=== PATIENT | female | born 1955 | race Caucasian/White ===

== ENCOUNTER 2016-10-21 18:46 | Emergency (ER) | payer SELFPAY ==
[2016-10-21 19:01] VITALS: RESP 14; O2SAT 95
--- NOTE | 2016-10-21 19:48 | EDPHY ---
H & P Time Seen by Provider: 10/21/16 18:56 HPI/ROS: 61-year-old female presents complaining of right lateral foot pain, she states she rolled it off the edge of the sidewalk. No numbness or tingling. Review of systems As per HPI General no fever no chills no weakness HEENT no eye pain no eye discharge. No eye redness, no sore throat Respiratory no cough, no shortness of breath Cardiac no chest pain, no peripheral edema GI no abdominal pain, no diarrhea, no constipation, no nausea, no vomiting no flank pain, no hematuria, no dysuria Musculoskeletal no myalgias, positive joint pain Heme no easy bruising, no easy bleeding Endo no polyuria, no polydipsia Skin no rashes, no pruritus Neuro no syncope, no dizziness, no headaches Psych is no suicidal ideation, no homicidal ideation Past Medical/Surgical History: Noncontributory Social History: Denies alcohol or drug use Smoking Status: Former smoker Physical Exam: 61-year-old female Alert and oriented in no acute distress nontoxic appearance, afebrile Atraumatic normocephalic Neck no JVD Lungs clear to auscultation, no respiratory distress Heart regular rate and rhythm Extremities no cyanosis clubbing edema Constitutional: Initial Vital Signs Temperature (C) 37.5 C 10/21/16 18:58 Heart Rate 96 10/21/16 18:58 Respiratory Rate 14 10/21/16 18:58 Blood Pressure 132/83 H 10/21/16 18:58 O2 Sat (%) 95 10/21/16 18:58 O2 Delivery Mode Room Air Allergies/Adverse Reactions: No Known Allergies Allergy (Unverified 10/21/16 18:57) Home Medications: Medication Instructions Recorded NK [No Known Home Meds] 10/21/16 Medical Decision Making ED Course/Re-evaluation: Patient seen and evaluated for right lateral foot pain, rolled her foot off the edge of a sidewalk. Differential diagnosis considered Right foot sprain, foot fracture Right foot x-ray Preliminary read negative for fracture Final reading pending Impression Right foot sprain Plan CAM boot Rest ice elevation Follow-up PCP Departure - Departure Disposition: Home, Routine, Self-Care Clinical Impression: Right foot sprain Condition: Good Instructions: Foot Sprain (ED) Referrals: Maria Del Carmen Burroughs MD [Primary Care Provider] - As per Instructions
[2016-10-21 20:23] VITALS: BP 128/82; PULSE 88; TEMP 99
== END 2016-10-21 20:10 | disposition home or self-care (01) ==
LOC: CED 18:46
DX: S93.601A Unspecified sprain of right foot, initial encounter (principal); Z87.891 Personal history of nicotine dependence; X58.XXXA Exposure to other specified factors, initial encounter; Y92.480 Sidewalk as the place of occurrence of the external cause
CPT/HCPCS: 73630-PO; L4386

== ENCOUNTER 2017-05-17 11:31 | Emergency (ER) | payer SELFPAY ==
[2017-05-17 11:41] VITALS: TEMP 98.5
[2017-05-17] MEDS ORDERED: IBUPROFEN 600 MG TAB PO ONE (11:50)
--- NOTE | 2017-05-17 12:10 | EDPHY ---
H & P Stated Complaint: fell 2 days ago, low back pain - Personal History Current Tetanus Diphtheria and Acellular Pertussis (TDAP): Unsure Tetanus Vaccine Date: unsure - Medical/Surgical History Hx Asthma: No Hx Chronic Respiratory Disease: No Hx Diabetes: No Hx Cardiac Disease: No Hx Renal Disease: No Hx Cirrhosis: No Hx Alcoholism: No Hx HIV/AIDS: No Hx Splenectomy or Spleen Trauma: No Other PMH: hepatitis C resolved 5 years ago, multiple sclerosis, - Social History Smoking Status: Former smoker <Chino Calle - Last Filed: 05/17/17 12:30> Source: Patient Exam Limitations: No limitations - Family History Significant Family History: No pertinent family hx <Naun Harvey - Last Filed: 05/20/17 14:48> Time Seen by Provider: 05/17/17 12:03 Constitutional: Initial Vital Signs Temperature (C) 36.9 C 05/17/17 11:36 Heart Rate 67 05/17/17 11:36 Respiratory Rate 16 05/17/17 11:36 Blood Pressure 157/74 H 05/17/17 11:36 O2 Sat (%) 98 05/17/17 11:36 O2 Delivery Mode Room Air Allergies/Adverse Reactions: No Known Allergies Allergy (Unverified 05/17/17 11:41) Home Medications: Medication Instructions Recorded Ibuprofen [Motrin] 800 mg PO Q8 #20 tab 05/17/17 oxyCODONE IR [Oxycodone Ir (*)] 5 - 10 mg PO Q6 PRN #20 tab 05/17/17 Lidocaine [Lidoderm] 1 each TP DAILY #15 adh..patch 05/19/17 Methocarbamol [Robaxin 750 mg (*)] 750 - 1,500 mg PO QID PRN #30 tab 05/19/17 oxyCODONE/APAP 5/325 [Percocet 1 - 2 tab PO Q4-6PRN PRN #20 tab 05/19/17 5/325 (*)] Medical Decision Making <Chino Calle - Last Filed: 05/17/17 12:30> <Naun Harvey - Last Filed: 05/20/17 14:48> ED Course/Re-evaluation: CHIEF COMPLAINT: Right rib pain HISTORY OF PRESENT ILLNESS: Healthy 61-year-old who slipped in her garage 2 days ago. She is undergoing a construction project and missed a step a temporary ramp. She fell backwards and hit some items in her garage. She hit her head but did not even really noticed that the next day. She did not have loss of consciousness, no amnesia, no nausea vomiting, no neck pain. She also has some bruising on the back of her right thigh but she came here today because she has right posterior lower thoracic rib pain. She states she had that pain initially but then today when she twisted her turned she felt excruciating pain. She denies any other injuries. REVIEW OF SYSTEMS: A 10 point review of systems was performed and is negative with the exception of the elements mentioned in the history of present illness. PHYSICAL EXAM: HR, BP, O2 Sat, RR. Temp noted General Appearance: Alert, well hydrated, appropriate, and non-toxic appearing. Head: Atraumatic without scalp tenderness or obvious injury Eyes: Pupils equal, round, reactive to light and accommodation, EOMI, no trauma , no injection. Ears: Clear bilaterally, no perforation, normal landmarks Nose: Atraumatic, no rhinorrhea, clear. Throat: There is no erythema or exudates, no lesions, normal tonsils, mucus membranes moist. Neck: Supple, 2+ carotid upstroke, nontender, no lymphadenopathy. Respiratory: Shallow breaths due to pain. Pain to palpation over the right posterior lateral 10th through 12th ribs. Spinal palpations normal. No retractions, no distress, no wheezes, and no accessory muscle use. Lungs are clear to auscultation bilaterally. Cardiovascular: Regular rate and rhythm, no murmurs, rubs, or gallops. Bilateral carotid, radial, dorsalis pedis, and posterior tibial pulses intact. Good capillary refill all extremities. Gastrointestinal: Abdomen is soft, nontender, non-distended, no masses, no rebound, no guarding, no peritoneal signs. Musculoskeletal: Normal active ROM of all extremities, atraumatic. Neurological: Alert, appropriate, and interactive. The patient has normal DTRs and non-focal cranial nerves, motor, sensory, and cerebellar exam. Skin: No rashes, good turgor, no nodules on palpation. Past medical history: Hepatitis-C Past surgical history: Noncontributory Family history: Noncontributory Social history: Single, employed, does not abuse tobacco drugs or alcohol DIAGNOSTICS/PROCEDURES/CRITICAL CARE TIME: Study: PA chest with right rib series Indication: Trauma Results: After viewing the images myself on the PACS system. My interpretation of the images is: Acute rib fracture #9. The radiologist interpretation is pending at the time of this dictation. I have discussed the above x-rays with the radiologist. DIFFERENTIAL DIAGNOSIS: Includes but is not limited to: Rib fracture, hemothorax, pneumothorax, thoracic compression fracture, lumbar compression fracture MEDICAL DECISION MAKING: This patient has significant pain to palpation in the posterolateral right tend to 12th ribs. My guess is she had a nondisplaced rib injury a couple of days ago which she displaced today and has acute pain from that. Her other 2 injuries being a small contusion on her left occiput and contusion and ecchymosis on her right hamstring area are essentially unremarkable and she would not be here in the hospital it fit were only those things. She is here because the acute rib pain. This patient has an acute rib fracture which is causing her pain. I will give her an incentive spirometer, recommend ibuprofen, and offer her [place]. (Chino Calle) - Data Points Medications Given: Discontinued Medications Ibuprofen (Motrin) 600 mg PO EDNOW ONE Stop: 05/17/17 11:51 Last Admin: 05/17/17 11:55 Dose: 600 mg Departure <Chino Calle - Last Filed: 05/17/17 12:30> <Naun Harvey - Last Filed: 05/20/17 14:48> - Departure Disposition: Home, Routine, Self-Care Clinical Impression: Closed rib fracture Condition: Good Instructions: Rib Fracture (ED) Referrals: Maria Del Carmen Burroughs MD [Primary Care Provider] - As per Instructions Prescriptions: Ibuprofen [Motrin] 800 mg PO Q8 #20 tab oxyCODONE IR [Oxycodone Ir (*)] 5 - 10 mg PO Q6 PRN #20 tab PRN Reason: Pain, Severe
[2017-05-17 12:51] VITALS: BP 156/84; PULSE 64; RESP 20; O2SAT 99
== END 2017-05-17 12:50 | disposition home or self-care (01) ==
LOC: CED 11:31
DX: S22.31XA Fracture of one rib, right side, initial encounter for closed fracture (principal); Z87.891 Personal history of nicotine dependence; W01.198A Fall on same level from slipping, tripping and stumbling with subsequent striking against other object, initial encounter
CPT/HCPCS: 71101-PO

== ENCOUNTER 2017-05-19 08:04 | Emergency (ER) | payer MEDICAID, OTHER ==
[2017-05-19] MEDS ORDERED: DIAZEPAM 5 MG TAB PO ONE (08:40)
[2017-05-19] MEDS ORDERED: OXYCODONE/APAP 5/325 TAB PO ONE (08:40)
[2017-05-19] MEDS ORDERED: ONDANSETRON DISINTEGRATING 4 MG TAB ONE (08:47)
--- NOTE | 2017-05-19 08:49 | EDPHY ---
H & P Time Seen by Provider: 05/19/17 08:19 HPI/ROS: This patient fell 4 days prior to arrival in her garage at home off of a construction wrap landing on [facility] with a right posterior 8th rib fracture diagnosed here 2 days ago started on ibuprofen and Oxy IR. She reports worsening pain despite the medications overnight and came in for evaluation concerned that she may have a pneumothorax or other complication. The patient is a retired RN. She reports having had 800 mg of ibuprofen at 6: 00 a.m.. Her last dose of oxycodone was at 4:00 a.m.. Currently the pain is mild at rest but 10/10 with any movement or a deep breath. Her cousin drove her here by private vehicle for further evaluation of her symptoms. ROS: No fevers or chills. No other constitutional symptoms HEENT: No injuries Pulmonary: No hemoptysis or respiratory distress. No coughing Cardiovascular: She reports no heart palpitations or lightheadedness GI: She reports mild pain under the ribs that she attributes to muscle tightness. No nausea except mild nausea from Oxy IR. No vomiting. She is tolerating p.o. Intake Extremities: She reports that she also sustained a mild hamstring contusion but reports no significant pain from an injury. Neuro: No head injury. No numbness tingling or confusion. 7 point ROS is otherwise negative. Smoking Status: Former smoker Physical Exam: General Appearance: Alert, no distress. Eyes: Pupils equal and round no pallor or injection. ENT, Mouth: Mucous membranes moist. Respiratory: There are no retractions, lungs are clear to auscultation. Cardiovascular: Regular rate and rhythm. Gastrointestinal: Abdomen is soft and nontender, no masses, bowel sounds normal. Back: Patient has right posterior rib tenderness between the 8th to 10th rib region or so. No crepitance is appreciated. Neurological: GCS 15 with no focal deficits Skin: Warm and dry, no rashes. Musculoskeletal: Neck is supple nontender. Extremities are symmetrical, full range of motion. Psychiatric: Mood and affect normal DIFFERENTIAL DIAGNOSIS: After history and physical exam differential diagnosis was considered for displaced rib fracture, pneumothorax, hemothorax, muscle spasm, doubt pneumonia Constitutional: Initial Vital Signs Temperature (C) 36.6 C 05/19/17 08:13 Heart Rate 62 05/19/17 08:13 Respiratory Rate 18 05/19/17 08:13 Blood Pressure 172/82 H 05/19/17 08:13 O2 Sat (%) 96 05/19/17 08:13 O2 Delivery Mode Room Air Allergies/Adverse Reactions: No Known Allergies Allergy (Unverified 05/17/17 11:41) Home Medications: Medication Instructions Recorded Ibuprofen [Motrin] 800 mg PO Q8 #20 tab 05/17/17 oxyCODONE IR [Oxycodone Ir (*)] 5 - 10 mg PO Q6 PRN #20 tab 05/17/17 Lidocaine [Lidoderm] 1 each TP DAILY #15 adh..patch 05/19/17 Methocarbamol [Robaxin 750 mg (*)] 750 - 1,500 mg PO QID PRN #30 tab 05/19/17 oxyCODONE/APAP 5/325 [Percocet 1 - 2 tab PO Q4-6PRN PRN #20 tab 05/19/17 5/325 (*)] MDM/Departure - MDM Imaging Results: Imaging Impressions Chest X-Ray 05/19/17 08:40 Impression: 1. No visible pneumothorax. 2. Grossly stable posterior right 8th rib fracture. Medications Given: Discontinued Medications Diazepam (Valium) 5 mg PO EDNOW ONE Stop: 05/19/17 08:41 Last Admin: 05/19/17 08:46 Dose: 5 mg Oxycodone/Acetaminophen (Percocet 5/325) 2 tab PO EDNOW ONE Stop: 05/19/17 08:41 Last Admin: 05/19/17 08:45 Dose: 2 tab ED Course/Re-evaluation: The patient is treated here this morning with 2 Percocets and 5 mg of Valium with significant relief in her pain. I counseled the patient regarding her benign-appearing chest x-ray today without evidence of pneumothorax or hemothorax I think that the worsening of her pain today's attributable to associated muscle spasm. I counseled regarding this. Will plan to treat her with Lidoderm patches, methocarbamol muscle relaxant and Percocet in addition to the ibuprofen she is currently taking. Answered all the patient's questions prior to discharge home. She understands the need to return to the emergency department should she develop significant worsening of her symptoms despite treatment plan. - Depart Disposition: Home, Routine, Self-Care Clinical Impression: Rib fracture Qualifiers: Encounter type: subsequent encounter Rib fracture type: single rib Fracture type: closed Laterality: right Fracture healing: with routine healing Qualified Code(s): S22.31XD - Fracture of one rib, right side, subsequent encounter for fracture with routine healing Condition: Good Instructions: Rib Fracture (ED) Additional Instructions: Diagnosis: Rib fracture You're chest x-ray today reveals no collapsed lung, blood in the thorax or other concerning findings. Plan: Continue the ibuprofen At the Lidoderm patches as prescribed Methocarbamol muscle relaxant in addition Tylenol or Percocet in addition if needed. No driving, alcohol or work on Percocet/oxycodone Take a stool softener wire on the opiates to prevent constipation Continue taking deep breaths every 10-15 minutes to prevent pneumonia secondary complication Limit activity until he feel better Follow up primary care physician for any ongoing symptoms Return for any significant worsening despite the treatment plan. Prescriptions: Lidocaine [Lidoderm] 1 each TP DAILY #15 adh..patch Methocarbamol [Robaxin 750 mg (*)] 750 - 1,500 mg PO QID PRN #30 tab PRN Reason: Muscle Spasms oxyCODONE/APAP 5/325 [Percocet 5/325 (*)] 1 - 2 tab PO Q4-6PRN PRN #20 tab PRN Reason: Pain Referrals: Maria Del Carmen Burroughs MD [Primary Care Provider] - As per Instructions
[2017-05-19 09:09] VITALS: BP 167/88
== END 2017-05-19 09:28 | disposition home or self-care (01) ==
LOC: CED 08:04
DX: S22.31XD Fracture of one rib, right side, subsequent encounter for fracture with routine healing (principal); Z87.891 Personal history of nicotine dependence; W19.XXXD Unspecified fall, subsequent encounter
CPT/HCPCS: 71046-PO